=== PATIENT | female | born 1965 | race Caucasian/White ===

== ENCOUNTER 2022-11-08 10:20 | Emergency (ER) | payer MEDICAID, OTHER ==
[~2022-11-08] VITALS: Ht 154.9 cm; Wt 58.4 kg
[2022-11-08 11:57] VITALS: BP 125/78
[2022-11-08] MEDS ORDERED: ATO40T PO (11:58)
[2022-11-08] MEDS ORDERED: CLOP75TA28 PO (11:58)
== END 2022-11-08 12:04 | disposition home or self-care (01) ==
LOC: ER 10:24
DX: R07.89 Other chest pain (principal); E78.5 Hyperlipidemia, unspecified; Z86.73 Personal history of transient ischemic attack (TIA), and cerebral infarction without residual deficits; Z76.0 Encounter for issue of repeat prescription; Z79.01 Long term (current) use of anticoagulants; Z79.899 Other long term (current) drug therapy

== ENCOUNTER 2024-03-17 09:19 | Emergency (ER) | payer MEDICAID ==
[~2024-03-17] VITALS: Ht 154.9 cm; Wt 56.0 kg
[~2024-03-17 09:19] MED LIST: ATOR-507 PO; CLOP75TA28 PO
[2024-03-17 10:57] VITALS: BP 114/61; PULSE 100; RESP 18; TEMP 99.2; O2SAT 97
[2024-03-17] MEDS: ACETAMINOPHEN 325 MG TAB PO ONE (11:08)
[2024-03-17] MEDS ORDERED: NAPR-746 PO (11:12)
[2024-03-17] MEDS: HYDROcodone-ACET 5/325MG TAB PO ONE (11:14)
== END 2024-03-17 12:11 | disposition home or self-care (01) ==
LOC: ER 09:19
DX: S82.402A Unspecified fracture of shaft of left fibula, initial encounter for closed fracture (principal); E78.5 Hyperlipidemia, unspecified; Z88.6 Allergy status to analgesic agent; Z86.73 Personal history of transient ischemic attack (TIA), and cerebral infarction without residual deficits; X50.1XXA Overexertion from prolonged static or awkward postures, initial encounter; Y93.39 Activity, other involving climbing, rappelling and jumping off; Y92.89 Other specified places as the place of occurrence of the external cause; Y99.8 Other external cause status
CPT/HCPCS: 29515; 73610

== ENCOUNTER 2024-06-10 19:17 | Emergency (ER) | payer MEDICAID ==
[~2024-06-10] VITALS: Ht 154.9 cm; Wt 60.4 kg
[~2024-06-10 19:17] MED LIST changes: +NAPR-746 PO
[2024-06-10 20:02] VITALS: BP 132/58; PULSE 119; RESP 18; O2SAT 96
[2024-06-10] MEDS: KETOROLAC TROMETH 60MG/2ML VIAL IM ONE (22:21)
== END 2024-06-10 23:42 | disposition home or self-care (01) ==
LOC: ER 19:17
DX: S82.832A Other fracture of upper and lower end of left fibula, initial encounter for closed fracture (principal); E78.5 Hyperlipidemia, unspecified; F17.210 Nicotine dependence, cigarettes, uncomplicated; Z79.899 Other long term (current) drug therapy; Z86.73 Personal history of transient ischemic attack (TIA), and cerebral infarction without residual deficits; Z88.6 Allergy status to analgesic agent; X58.XXXA Exposure to other specified factors, initial encounter; Y93.01 Activity, walking, marching and hiking; Y92.89 Other specified places as the place of occurrence of the external cause; Y99.8 Other external cause status
CPT/HCPCS: 29515; 73610; 96372; 99283; J1885